=== PATIENT | female | born 1985 | race Caucasian/White ===

== ENCOUNTER 2017-10-30 18:44 | Inpatient (IN) | payer BC, OTHER ==
[2017-10-30] MEDS ORDERED: LR / Pitocin 40 units/1000 ml 1,000 ML IV PRN (18:57)
[2017-10-30] MEDS ORDERED: Lidocaine 1% (PF) 30 ML VIAL SC PRN (18:57)
[2017-10-30] MEDS ORDERED: HYDROcodone/Acetaminophen 5/325 mg Tablet PO PRN (18:57)
[2017-10-30] MEDS ORDERED: Ondansetron HCl/PF 4 MG/2 ML Vial IVP PRN (18:57)
[2017-10-30] MEDS ORDERED: Carboprost 250 MCG/ML AMP IM PRN (18:57)
[2017-10-30] MEDS ORDERED: Diphenoxylate HCl/Atropine Tablet PO PRN (18:57)
[2017-10-30] MEDS ORDERED: Misoprostol 200 MCG TAB PR PRN (18:57)
[2017-10-30] MEDS ORDERED: Ibuprofen 800 MG TAB PO PRN (18:57)
[2017-10-30] MEDS ORDERED: Promethazine HCl 25 MG/ML VIAL IM PRN (18:57)
[2017-10-30] MEDS ORDERED: Methylergonovine 0.2 MG/ML VIAL IM PRN (18:57)
[2017-10-30 19:50] LABS: Hemoglobin 12.1 g/dL (12.0-16.0); Mean Corpuscular HGB CONC 34.2 g/dL (32.0-36.0); Mean Corpuscular Hemoglobin 30.6 pg (27.0-31.0); Mean Corpuscular Volume 89.5 fl (81.0-99.0); Mean Platelet Volume 7.8 fL (7.4-10.4); Platelet Count 172 thou/uL (130-400); RBC Distribution Width 16.2 % (11.5-14.5); Red Blood Cell (RBC) Count 3.94 mill/uL (4.20-5.40); White Blood Cell (WBC) Count 10.6 thou/uL (4.8-10.8)
[2017-10-30 20:08] VITALS: BMI 29.2
[2017-10-30 20:26] LABS: HBSAg Index 0.18 S/CO (0-0.99); Hep B Surf Ag Non-Reactive S/CO (NonReactive)
--- NOTE | 2017-10-30 22:04 | PDOC.LDHP ---
Labor and Delivery H&P Chief complaint: contractions HPI: 32yo at 39w1d by LMP with painful contractions. No LOF VB. Good FM. Current gestational age (weeks): 39 Due date: 11/07/17 Dating criteria: last menstrual period Grav: 2 Para: 1 Current complications: none Abnormal US findings: No Current medications: pre-alberto vitamins Previous surgical history: none Allergies/Adverse Reactions: Allergies Allergy/AdvReac Type Severity Reaction Status Date / Time No Known Allergies Allergy Verified 10/30/17 19:58 Social history: none - Physical Exam Vital signs reviewed and normal: yes General: NAD Heart: RRR Lungs: CTAB Abdomen: gravid Extremeties: no edema FHT: category 1 Cricket contractions every: q3min - Vaginal Exam cm dilated: 10 Effacement: 100% Station: 2+ - OB Labs Blood type: O RH: positive Antibody Screen: negative HIV: negative RPR: negative HEPSAg: negative 1 hour GCT: negative GBS: negative Rubella: immune - Assessment L&D Assessment: term patient in labor - Plan Plan: admit to L&D, labor augmentation if indicated, informed consent obtained, anesthesia consult for pain management
--- NOTE | 2017-10-30 22:06 | PDOC.OPDEL ---
OB Operative/Delivery Note Delivery Dr/Surgeon: Claribel/Amie Pre-Delivery Diagnosis: active labor Procedure/Post Delivery Dx: spontaneous vaginal delivery Weeks gestation: 39 Anesthesia: none - Findings A Sex: female Weight: 7 lb 4 oz - 1 min: 8 - 5 min: 9 - Additional Findings/Plan Placenta delivered: spontaneous Repaired Obstetrical Laceration: none Estimated blood loss: 100 Post delivery plan: routine recovery
[2017-10-31] MEDS ORDERED: Ondansetron HCl/PF 4 MG/2 ML Vial IVP PRN (01:33)
[2017-10-31] MEDS ORDERED: Milk Of Magnesia 30 ML UDCUP PO PRN (01:33)
[2017-10-31] MEDS ORDERED: Adacel (T-DAP) 0.5 ML VIAL IM ONE (01:33)
[2017-10-31] MEDS ORDERED: LR / Pitocin 40 units/1000 ml 1,000 ML IV SCH (01:33)
[2017-10-31] MEDS ORDERED: HYDROcodone/Acetaminophen 5/325 mg Tablet PO PRN (01:33)
[2017-10-31] MEDS ORDERED: Preparation H Ointment 28 GM TUBE PR PRN (01:33)
[2017-10-31] MEDS ORDERED: Lanolin Ointment 7 GM TUBE TOP PRN (01:33)
[2017-10-31] MEDS ORDERED: diphenhydrAMINE 25 MG CAP PO PRN (01:33)
[2017-10-31] MEDS ORDERED: Benzocaine/Menthol 20-0.5% 60 ML CAN TOP PRN (01:33)
[2017-10-31] MEDS ORDERED: Bisacodyl 10 MG SUPP PR PRN (01:33)
[2017-10-31] MEDS: Ibuprofen 800 MG TAB PO SCH ×3 (06:50→21:48)
[2017-10-31] MEDS: Ferrous Sulfate 325 MG TAB PO SCH (07:31)
--- NOTE | 2017-10-31 08:42 | PRG ---
DATE OF SERVICE: 10/31/2017 PRIMARY OB: Dr. Kathleen Holloway. SUBJECTIVE: The patient is day #1, status post an uncomplicated term spontaneous vaginal delivery. She reports she is tolerating p.o., voiding on her own, having decreased lochia and good p ain control. PHYSICAL EXAMINATION: VITAL SIGNS: Blood pressure 126/60, pulse of 90, respiratory rate of 16. GENERAL: She appears to be in no acute distress. She is alert and oriented, cooperative and pleasan t to interact with. HEENT: Head is normocephalic, atraumatic. ABDOMEN: Fundus is firm. EXTREMITIES: Nontender, nonedematous. LABORATORY DATA: Her hemoglobin is not available. ASSESSMENT AND PLAN: The patient is a 32-year-old female status post term spontaneous vaginal delive ry, uncomplicated. I will continue care. Anticipate discharge tomorrow.
[2017-10-31] MEDS: Docusate Calcium (SURFAK) 240 MG CAP PO SCH ×2 (08:47→21:48)
[2017-10-31] MEDS ORDERED: Prenatal Vitamin 1 TAB PO SCH (09:00)
[2017-11-01] MEDS: Ibuprofen 800 MG TAB PO SCH (05:57)
--- NOTE | 2017-11-01 06:59 | PDOC.PP ---
Post Progress Note Post Day #: PPD#2 Subjective: Doing well, ready for home. PO intake tolerated: yes Ambulation: yes Vital Signs (12 hours) Temp Pulse Resp BP 10/31/17 19:45 98.5 F 84 18 121/78 Weight Weight 72.575 kg - Physical Examination General: NAD Respiratory: non-labored breathing Abdominal: lochia Psychiatric: normal affect Result Diagrams: 10/30/17 19:30 Additional Labs: Post Labs Blood Type O POSITIVE 10/30/17 19:30 Hep Bs Antigen Non-Reactive S/CO (NonReactive) 10/30/17 19:30 - Assessment/Plan DC home. Precautions. F/u Dr. Holloway in 6 weeks.
[2017-11-01 07:40] VITALS: BP 121/73; TEMP 97.8
[2017-11-01] MEDS: Ferrous Sulfate 325 MG TAB PO SCH (07:52)
== END 2017-11-01 09:06 | disposition home or self-care (01) | DRG 775 ==
LOC: L&D/OP 18:44 → L&D-LIB 19:20 → 3SW 10-31 01:49
PROVIDERS: ADMIT Student in an Organized Health Care Education/Training Program; ATTEND Student in an Organized Health Care Education/Training Program
PROC: 10E0XZZ Delivery of Products of Conception, External Approach (ICD-10-PCS; principal; 2017-10-30)
DX: O80 Encounter for full-term uncomplicated delivery (principal); Z37.0 Single live birth; Z3A.39 39 weeks gestation of pregnancy
CPT/HCPCS: 85027; 87340; 99285; J2001